=== PATIENT | male | born 1995 | race Hispanic/Latino ===

== ENCOUNTER 2024-10-29 12:19 | Day surgery (SDC) | payer OTHER, SELFPAY ==
--- NOTE | 2024-10-29 | PATH_ITS ---
[facility] Accession Number: [id number] No. of containers..04 Tissue . 01 Material submitted: . PART A: stomach - ANTRUM PART B: stomach - STOMACH PART C: small bowel - TERMINAL ILEUM PART D: rectum - RECTAL POLYP . 01 Diagnosis: A. GASTRIC ANTRUM, BIOPSY: Helicobacter pylori gastritis, gastric antral mucosa, see comment. Negative for intestinal metaplasia, dysplasia, or malignancy. - B. GASTRIC BIOPSY: Helicobacter pylori gastritis, gastric oxyntic mucosa, see comment. Negative for intestinal metaplasia, dysplasia, or malignancy. - C. TERMINAL ILEUM, BIOPSY: Terminal ileal mucosa with no diagnostic abnormality. Negative for active inflammation, granulomas, dysplasia, or malignancy. - D. RECTUM, POLYPECTOMY: Hyperplastic polyp. [facility] 11/10/2024 1126 Local . 01 Comment: Parts A and B: An immunohistochemical stain was performed to evaluate for Helicobacter organisms and is POSITIVE. The control stain was adequately reactive. Technical Note: The immunohistochemical stains reported [facility] ([address], [facility] [address]). They were developed and their performance characteristics determined by [employer] They have not been cleared or approved by the U.S. Food and Drug Administration, although such approval is not required for analyte-specific reagents of this type. . 01 Electronically signed: . Bernie Arcos MD, Pathologist NPI- [id number] . 01 Gross description: . A. Received in formalin with two identifiers and antrum, are four soft long tissue fragments ranging from 0.3 to 0.4 cm in greatest dimension. Entirely submitted in cassette A1. B. Received in formalin with two identifiers and stomach, are two soft long tissue fragments ranging from 0.3 to 0.5 cm in greatest dimension. Entirely submitted in cassette B1. C. Received in formalin with two identifiers and terminal ileum, are three soft long tissue fragments ranging from 0.2 to 0.4 cm in greatest dimension. Entirely submitted in cassette C1. D. Received in formalin with two identifiers and rectal polyp, is a single soft long tissue fragment measuring 0.3 cm in greatest dimension. Entirely submitted in cassette D1. ([id number]) /ATIF 11/07/2024 1929 Local . 01 Pathologist provided ICD-10: R19.7 . 01 CPT . 465474, 500153, 121824, 766650, [id number] Specimen Comment: A courtesy copy of this report has been sent to [phone] Performed at: [address] [address], [place], [place] [id number] MD Christopher Rogers MD Phone: [phone]
[2024-10-29 13:15] VITALS: BP 115/81; PULSE 72; RESP 18; TEMP 36.3; O2SAT 98
[2024-10-29] MEDS: LACTATED RINGERS 1,000 ML 42 ML IV (13:23)
--- NOTE | 2024-10-29 13:36 | PM.PREOP ---
Pre-operative Note COVID-19 COVID-19 status: Not tested Interval Note History & Physical reviewed/Exam performed by Physician: Yes Changes to H&P: No ASA Class (for procedural sedation): II
--- NOTE | 2024-10-29 14:11 | PM.OP.EC ---
Operative Date/Time/Diagnoses Date of procedure: 10/29/24 Time of procedure: 14:11 Pre-op diagnosis: Rectal bleeding Post-op diagnosis: same Procedure & Clinicians Study performed: EGD and colonoscopy Same procedure(s) as scheduled: Yes Surgeon: Loyd Joseph Anesthesia Type: MAC +/- Procedure Notes Procedure in detail: Surgeon: Loyd Joseph MD Anesthesia: Esther Terrazas [employer] Procedure in detail: A timeout was performed. A bite blocked was placed and monitors were attached to the patient. The patient was positioned in the left lateral decubitus position. Sedation was administered. Once the patient was sedated the endoscope was inserted through the bite block and passed through the esophagus and stomach and into the duodenum. The duodenum appeared normal. We then withdrew the scope into the stomach. Was some mild antritis and gastritis and biopsies were performed of the antrum and body of the stomach using cold forceps. The endoscope was retroflexed and hiatal hernia was seen. The endoscope was straightned and withdrawn into the esophagus. No abnormalities were noted in the esophagus. EGD findings: Mild antritis and gastritis Next we repositioned the patient for a colonoscopy. A digital rectal exam was performed and was normal. The colonoscope was inserted and advanced to the cecum. The appendiceal orifice was identified and photographed. The scope was slowly withdrawn over greater than 6 minutes. The terminal ileum was intubated. The terminal ileal mucosa appeared slightly friable and biopsies were taken with cold forceps from the terminal ileum. The remainder of the colon appeared normal. The scope was retroflexed in the rectum and no other abnormalities were found. Colonoscopy findings: Slightly friable mucosa of the terminal ileum Total procedural EBL: 5 mL Scope withdrawal time: 7 minutes Sedation minutes: 20 minutes Post-procedure Disposition: PACU
[2024-10-29 14:12] VITALS: BP 126/71; PULSE 94; RESP 16; TEMP 36.6; O2SAT 95
[2024-10-29 14:15] VITALS: BP 124/71; PULSE 91; RESP 26; O2SAT 95
[2024-10-29 14:20] VITALS: BP 122/77; PULSE 91; RESP 22; TEMP 36.3; O2SAT 95
[2024-10-29 14:25] VITALS: BP 125/61; PULSE 82; RESP 28; O2SAT 96
== END 2024-10-29 14:50 | disposition home or self-care (01) ==
PROVIDERS: Referring Provider Surgery; Visit Provider Surgery
PROC: 0DJ08ZZ Inspection of Upper Intestinal Tract, Via Natural or Artificial Opening Endoscopic (ICD-10-PCS; CPT 45380; principal; 2024-10-29 14:00)
PROC: 0DJD8ZZ Inspection of Lower Intestinal Tract, Via Natural or Artificial Opening Endoscopic (ICD-10-PCS; CPT 45378; 2024-10-29 14:00)
DX: K62.5 Hemorrhage of anus and rectum (principal); K44.9 Diaphragmatic hernia without obstruction or gangrene; K29.70 Gastritis, unspecified, without bleeding; F17.210 Nicotine dependence, cigarettes, uncomplicated; K62.1 Rectal polyp; K29.60 Other gastritis without bleeding; B96.81 Helicobacter pylori [H. pylori] as the cause of diseases classified elsewhere
CPT/HCPCS: 45380; 43239; J2405; J2704

== ENCOUNTER → 2025-02-12 14:12 | Outpatient (CLI) | payer OTHER, SELFPAY ==
[2025-02-15 18:39] LABS: Interpretation Positive (Negative)
== END ==
PROVIDERS: Referring Provider Surgery; Visit Provider Surgery
DX: A04.8 Other specified bacterial intestinal infections (principal)
CPT/HCPCS: 83013